=== PATIENT | male | born 1975 | race Caucasian/White ===

== ENCOUNTER 2025-03-24 15:47 | Inpatient (IN) | payer MEDICAID, OTHER ==
[~2025-03-24] VITALS: Ht 182.9 cm; Wt 98.9 kg
[2025-03-24] MEDS ORDERED: NITROGLYCERIN 0.4 MG/TAB BOTTLE ONE (16:07)
[2025-03-24] MEDS: IV NS 0.9% 500 ML BAG IV ONE (16:19)
[2025-03-24] MEDS: NITROGLYCERIN 0.4 MG/TAB BOTTLE SL ONE (16:20)
[2025-03-24 16:33] LABS: PLATELET COUNT (AUTO) 199 K/uL (150-450); RED BLOOD CELL COUNT(AUTO) 5.25 MIL/uL (4.5-6.0); RED CELL DISTRIBUTION WIDTH 14.2 % (11.5-15.0); WHITE BLOOD COUNT (AUTO) 8.8 K/uL (4.3-11.0)
[2025-03-24 16:40] LABS: CALCIUM, SERUM 9.1 mg/dL (8.5-10.1); CREATININE 0.9 mg/dL (0.6-1.3); SODIUM SERUM 139.0 mmol/L (136-145); UREA NITROGEN, BLOOD 14.0 mg/dL (7-18)
[2025-03-24] MEDS ORDERED: GLUCAGON,HUMAN RECOMBINANT 1 MG/VIAL VIAL ONE (16:46)
[2025-03-24] MEDS ORDERED: ONDANSETRON HCL/PF 4 MG/2 ML VIAL ONE (16:46)
[2025-03-24] MEDS ORDERED: WATER FOR INJECTION,STERILE 10 ML ONE (16:46)
[2025-03-24] MEDS ORDERED: JARDIANCE PO (17:02)
[2025-03-24] MEDS ORDERED: OLME5TAB3 PO (17:02)
[2025-03-24] MEDS ORDERED: ROSUVASTATIN CALCIUM PO (17:02)
[2025-03-24] MEDS ORDERED: METF-442 PO (17:02)
[2025-03-24] MEDS ORDERED: SEMA1PEN SQ (17:02)
[2025-03-24] MEDS: ONDANSETRON HCL/PF 4 MG/2 ML VIAL IV ONE (17:10)
[2025-03-24] MEDS: GLUCAGON,HUMAN RECOMBINANT 1 MG/VIAL VIAL IV ONE (17:11)
[2025-03-24] MEDS ORDERED: MORPHINE SULFATE INJ 2 MG/ML DISP.SYRIN IV PRN (17:30)
[2025-03-24] MEDS ORDERED: DEXTROSE 50%-WATER 50 ML DISP.SYRIN IV PRN (17:30)
[2025-03-24] MEDS ORDERED: ONDANSETRON HCL/PF 4 MG/2 ML VIAL IVP PRN (17:30)
[2025-03-24] MEDS ORDERED: hydrALAZINE HCL IV 20 MG VIAL IV PRN (17:30)
[2025-03-24 18:15] VITALS: O2SAT 96
[2025-03-24] MEDS: ENOXAPARIN SODIUM 40 MG/0.4 ML DISP.SYRIN SQ SCH (18:46)
[2025-03-24] MEDS: IV NS 0.9% 1,000 ML IV SCH (18:46)
[2025-03-24] MEDS: BLOOD SUGAR DIAGNOSTIC 1 EACH STRIP IN SCH (18:46)
[2025-03-24] MEDS ORDERED: ANESTHESIA TRAY IN PYXIS 1 EA TRAY MC ONE (18:52)
[2025-03-24 20:00] VITALS: BP 120/78; TEMP 97.2; O2SAT 97
[2025-03-24] MEDS: ACETAMINOPHEN 325 MG TABLET PO PRN (20:12)
[2025-03-25 07:00] VITALS: BP 123/53; TEMP 98.1; O2SAT 94
[2025-03-25 07:22] LABS: PLATELET COUNT (AUTO) 189 K/uL (150-450); RED BLOOD CELL COUNT(AUTO) 5.00 MIL/uL (4.5-6.0); RED CELL DISTRIBUTION WIDTH 13.9 % (11.5-15.0); WHITE BLOOD COUNT (AUTO) 8.6 K/uL (4.3-11.0)
[2025-03-25 07:40] LABS: ASPARTATE AMINOTRANSFERASE 18.0 U/L (15-37); CALCIUM, SERUM 8.9 mg/dL (8.5-10.1); CREATININE 0.9 mg/dL (0.6-1.3); PHOSPHORUS 4.4 mg/dL (2.5-4.9); SODIUM SERUM 140.0 mmol/L (136-145); TOTAL PROTEIN, SERUM 7.0 g/dL (6.4-8.2); UREA NITROGEN, BLOOD 12.0 mg/dL (7-18)
[2025-03-25] MEDS: INSULIN REGULAR, HUMAN 100 UNIT/ML 3 ML VIAL SQ PRN (12:12)
[2025-03-25 15:00] VITALS: BP 118/61; TEMP 97.7; O2SAT 95
== END 2025-03-25 11:25 | disposition home or self-care (01) | DRG 254 ==
LOC: ER 16:07 → MED 18:00
PROVIDERS: ADMIT Internal Medicine; ATTEND Internal Medicine
PROC: 0DC58ZZ Extirpation of Matter from Esophagus, Via Natural or Artificial Opening Endoscopic (ICD-10-PCS; principal; 2025-03-24 19:00)
DX: T18.128A Food in esophagus causing other injury, initial encounter (principal); K22.2 Esophageal obstruction; E11.9 Type 2 diabetes mellitus without complications; E66.9 Obesity, unspecified; I10 Essential (primary) hypertension; K29.70 Gastritis, unspecified, without bleeding; W44.F3XA Food entering into or through a natural orifice, initial encounter; Y92.9 Unspecified place or not applicable; Z79.84 Long term (current) use of oral hypoglycemic drugs; Z68.29 Body mass index [BMI] 29.0-29.9, adult
CPT/HCPCS: 36415; 43235; 80048-TC; 80053-TC; 82962-TC; 83735-TC; 84100-TC; 85025-TC; 87081-TC; A4223; G0378; J0330; J0690; J1100; J1610; J1815; J2405; J2704; J2765; J3490; J7030